=== PATIENT | male | born 1985 ===

== ENCOUNTER 2019-03-28 06:31 | Day surgery (SDC) | payer OTHER ==
[2019-03-28] MEDS ORDERED: PERCOCET 5-3251 EACH PO (09:32)
[2019-03-28] MEDS ORDERED: RECTICARE30 GM TOP (09:32)
== END 2019-03-28 15:40 | disposition home or self-care (01) ==
LOC: CIR.AMB 06:31
DX: K60.3 Anal fistula (principal)